=== PATIENT | female | born 1965 | race Caucasian/White ===

== ENCOUNTER 2017-05-22 08:42 | Emergency (ER) | payer OTHER ==
[2017-05-22] MEDS ORDERED: Diphtheria,Pertussis(Acell),Tetanus Vaccine 0.5 ML Syringe IM ONE (08:53)
[2017-05-22] MEDS ORDERED: Bacitracin Oint 1 GM U/D Packet TOP ONE (09:04)
--- NOTE | 2017-05-22 09:05 | EDM.PDOC ---
ED HPI GENERAL MEDICAL PROBLEM - General Chief Complaint: Upper Extremity Injury/Pain Stated Complaint: CUT FINGER ON LT HAND Time Seen by Provider: 05/22/17 09:02 Source of Information: Reports: Patient - History of Present Illness INITIAL COMMENTS - FREE TEXT/NARRATIVE: HISTORY AND PHYSICAL: History of present illness: [Patient presents with a puncture wound at the base of her fourth digit because by appearing knife is a small 2 mm puncture that is reported this morning, she is in no distress tendon function intact flexor and extensor higher limb is neurovascularly intact no redness warmth or pus drainage No fever nausea vomiting chills sweats ] Review of systems: As per history of present illness and below otherwise all systems reviewed and negative. Past medical history: As per history of present illness and as reviewed below otherwise noncontributory. Surgical history: As per history of present illness and as reviewed below otherwise noncontributory. Social history: No reported history of drug or alcohol abuse. Family history: As per history of present illness and as reviewed below otherwise noncontributory. Physical exam: HEENT: Atraumatic, normocephalic, pupils reactive, negative for conjunctival pallor or scleral icterus, mucous membranes moist, throat clear, neck supple, nontender, trachea midline. Lungs: Clear to auscultation, breath sounds equal bilaterally, chest nontender. Heart: S1S2, regular, negative for clicks, rubs, or JVD. Abdomen: Soft, nondistended, nontender. Negative for masses or hepatosplenomegaly. Negative for costovertebral tenderness. Pelvis: Stable nontender. Genitourinary: Deferred. Rectal: Deferred. Extremities: Atraumatic, negative for cords or calf pain. Neurovascular unremarkable. Neuro: Awake, alert, oriented. Cranial nerves II through XII unremarkable. Cerebellum unremarkable. Motor and sensory unremarkable throughout. Exam nonfocal. Skin as per history of present illness otherwise unremarkable Diagnostics: [Clinical] Therapeutics: Tetanus status was last updated July 2012 [Wound is cleansed and explored Keflex Bacitracin Telfa dressing applied] Impression: [Encounter for wound check] Definitive disposition and diagnosis as appropriate pending reevaluation and review of above. left 3rd digit Pain Score (Numeric/FACES): 7 - Related Data Allergies Allergy/AdvReac Type Severity Reaction Status Date / Time Sulfa (Sulfonamide Allergy Cannot Verified 05/22/17 08:52 Antibiotics) Remember Home Meds: Home Meds Gabapentin [Gabapentin] 1 tab PO BEDTIME 08/16/14 [History] Past Medical History Musculoskeletal History: Reports: Other (See Below) Other Musculoskeletal History: Right shoudler injury and right wrist pain - Infectious Disease History Infectious Disease History: Reports: Chicken Pox Other Infectious Disease History: childhood - Past Surgical History Musculoskeletal Surgical History: Reports: Other (See Below) Social & Family History - Family History Family Medical History: Noncontributory - Tobacco Use Smoking Status *Q: Never Smoker Second Hand Smoke Exposure: No - Alcohol Use Days Per Week of Alcohol Use: 2 Number of Drinks Per Day: 3 Total Drinks Per Week: 6 - Recreational Drug Use Recreational Drug Use: No Review of Systems - Review of Systems Review Of Systems: ROS reveals no pertinent complaints other than HPI. ED EXAM, GENERAL - Physical Exam Exam: See Below Course - Vital Signs Last Recorded V/S: Last Vital Signs Temp 97.1 F 05/22/17 08:53 Pulse 74 05/22/17 08:53 Resp 18 05/22/17 08:53 BP 121/72 05/22/17 08:53 Pulse Ox 100 05/22/17 08:53 - Orders/Labs/Meds Orders: Active Orders 24 hr Category Date Time Status Vaccines to be Administered [RC] PER UNIT ROUTINE Care 05/22/17 08:53 Active Meds: Medications Discontinued Medications Generic Name Dose Route Start Last Admin Trade Name Kali PRN Reason Stop Dose Admin Diphtheria/Tetanus/Acell Pertussis 0.5 ml 05/22/17 08:53 Adacel IM 05/22/17 08:54 .ONCE ONE Departure - Departure Time of Disposition: 09:03 Disposition: Home, Self-Care 01 Condition: Good Clinical Impression: Visit for wound check - Discharge Information Referrals: PCP,None [Primary Care Provider] - Additional Instructions: Standard wound care instructions Keep wound clean and dry for 48 hours Medication as prescribed The following information is given to patients seen in the emergency department who are being discharged to home. This information is to outline your options for follow-up care. We provide all patients seen in our emergency department with a follow-up referral. The need for follow-up, as well as the timing and circumstances, are variable depending upon the specifics of your emergency department visit. If you don't have a primary care physician on staff, we will provide you with a referral. We always advise you to contact your personal physician following an emergency department visit to inform them of the circumstance of the visit and for follow-up with them and/or the need for any referrals to a consulting specialist. The emergency department will also refer you to a specialist when appropriate. This referral assures that you have the opportunity for follow-up care with a specialist. All of these measure are taken in an effort to provide you with optimal care, which includes your follow-up. Under all circumstances we always encourage you to contact your private physician who remains a resource for coordinating your care. When calling for follow-up care, please make the office aware that this follow-up is from your recent emergency room visit. If for any reason you are refused follow-up, please contact the [facility] emergency department at and asked to speak to the emergency department charge nurse. - My Orders Last 24 Hours: My Active Orders 05/22/17 08:53 Vaccines to be Administered [RC] PER UNIT ROUTINE - Assessment/Plan Last 24 Hours: My Active Orders 05/22/17 08:53 Vaccines to be Administered [RC] PER UNIT ROUTINE
[2017-05-22 09:19] VITALS: BP 117/76
== END 2017-05-22 09:19 | disposition home or self-care (01) ==
LOC: MW.ED 08:42
DX: S61.233D Puncture wound without foreign body of left middle finger without damage to nail, subsequent encounter (principal); Z88.2 Allergy status to sulfonamides; Z23 Encounter for immunization; W26.0XXD Contact with knife, subsequent encounter
CPT/HCPCS: 90471; 99283; 99283-25

== ENCOUNTER 2019-07-13 07:15 | Emergency (ER) | payer BC, OTHER ==
--- NOTE | 2019-07-13 07:53 | EDM.PDOC ---
ED [facility] GENERAL MEDICAL PROBLEM - General Chief Complaint: Back Pain or Injury Stated Complaint: BACK PAIN Time Seen by Provider: 07/13/19 07:53 - History of Present Illness INITIAL COMMENTS - FREE TEXT/NARRATIVE: HPI 54-year-old obese female presents for evaluation of right sided low lumbar paraspinal pain is sharp, provoked by twisting and movement, and radiates down her right leg into his right inguinal crease began gradually yesterday while the patient was lifting and moving items into a new 5th wheel trailer. Patient denies a history of recent trauma, fevers, chills, unexpected weight loss, decreased perineal sensation when toileting, difficulty urinating or incontinence, morning stiffness, IV drug use, alcoholism, recent invasive medical procedures, presyncope, abdominal pain, or dysuria. Smokin pack year history. Anticoagulation: denies anticoagulation and antiplatelet medications. M/S/F/SocHx notable for: please see HPI; remainder reviewed with patient and in chart. ROS: Negative constitutional, eye, cardiovascular, pulmonary, GI, , MSK, skin , neurologic, psychiatric, endocrine unless noted in the HPI. Exam HR 94, RR 20, BP 142/93, T 36.6C, SaO2 98% on room air. Gen: Pleasant, non-toxic appearing, resting in mild discomfort, tearful. HEENT: NC, AT, PEERL, EOMI. Resp: clear to auscultation bilaterally. Card: RRR GI: ND, non-tender to palpation, no palpable midline masses, no palpable midline pulsatility. : No CVA tenderness to percussion bilaterally. MSK: No visible deformities, strength and tone WNL. No lower thoracic or lumbar spinal TTP, step offs or deformities. Mild right lower lumbar paraspinal TTP. Skin: Normal color with no visible lesions. Neuro: alert and oriented 3, no facial asymmetry, vision and hearing WNL. Straight leg raise test - positive right, negative left. BLE distal sensation intact, 5/5 dorsiflexion / plantarflexion bilaterally. Gait: mildly antalgic, normal, narrow based gait, able to walk unassisted and stand on heels and toes with full apparent strength. Psych: anxious mood and affect, otherwise appropriate. MDM Previous chart, nursing note, and vitals reviewed. A: 54-year-old obese female presents for evaluation of right sided low lumbar paraspinal pain is sharp, provoked by twisting and movement, and radiates down her right leg into his right inguinal crease began gradually yesterday while the patient was lifting and moving items into a new 5th wheel trailer. DDx: muscle strain, muscle spasm, sciatica, lumbar radiculopathy, cauda equina syndrome, spinal cord abscess, vertebral osteomyelitis, vertebral diskitis, fracture, seronegative spondyloarthropathy, abdominal aortic aneurysm, abdominal aortic dissection, spontaneous hematoma, malignant spinal cord compression. Evaluation: * Cauda equina - consider unlikely given normal perineal sensation, lack of incontinence or urinary retention. * Infection - abscess, vertebral osteomyelitis, and diskitis are unlikely as the patient is immunocompetent and is with an absence of infectious signs and risk factors on ROS, and a lack of point tenderness. * Fracture - doubt given the absence of spinal TTP and lack of prior trauma * Seronegative spondyloarthropathy - unlikely, no further evaluation currently indicated given the absence of morning stiffness and negative RA, psoriatic arthritis, and autoimmune disease history. * AAA or Dissection - given the absence of tobacco use, the lack of a palpable pulsatile abdominal mass, abdominal pain, presyncope, an abdominal aortic aneurysm as well as dissection is considered unlikely and further investigation is not currently indicated. * Spinal Metastases - given the unremarkable ROS, absence of point spinal tenderness on exam and the lack of discernible neurological deficit, no further testing regarding this etiology is currently indicated. * Consider lumbar radiculopathy to be the most likely cause of the patients symptoms. Counseled patient regarding natural course of radicular back pain, given return to care instructions, and recommendation for primary care physician follow up. Discharged with limited RX for [place]. Patient was notified of their elevated blood pressure and recommended to follow up with their primary care physician. As the patient is without evidence of acute end organ dysfunction no further emergent evaluation is indicated as per the 2013 ACEP clinical policy. Impression: Back Pain. lower back Pain Score (Numeric/FACES): 10 - Related Data Allergies Allergy/AdvReac Type Severity Reaction Status Date / Time Sulfa (Sulfonamide Allergy Cannot Verified 07/13/19 07:27 Antibiotics) Remember Home Meds: Home Meds Hydrocodone/Acetaminophen [[place] 5-325 Tablet] 1 - 2 each PO Q6H PRN #10 tablet 07/13/19 [Rx] Past Medical History HEENT History: Reports: None Cardiovascular History: Reports: None Respiratory History: Reports: None Gastrointestinal History: Reports: None Genitourinary History: Reports: None ARTILLERY SPECIALIST History: Reports: None Musculoskeletal History: Reports: Other (See Below) Other Musculoskeletal History: Right shoudler injury and right wrist pain Neurological History: Reports: None Psychiatric History: Reports: None Endocrine/Metabolic History: Reports: None Hematologic History: Reports: None Immunologic History: Reports: None Oncologic (Cancer) History: Reports: None Dermatologic History: Reports: None - Infectious Disease History Infectious Disease History: Reports: Chicken Pox Other Infectious Disease History: childhood - Past Surgical History Head Surgeries/Procedures: Reports: None HEENT Surgical History: Reports: None Cardiovascular Surgical History: Reports: None Respiratory Surgical History: Reports: None GI Surgical History: Reports: None Female Surgical History: Reports: Hysterectomy Endocrine Surgical History: Reports: None Neurological Surgical History: Reports: None Musculoskeletal Surgical History: Reports: Other (See Below) Other Musculoskeletal Surgeries/Procedures:: left hand surgery Oncologic Surgical History: Reports: None Dermatological Surgical History: Reports: None Social & Family History - Family History Family Medical History: Noncontributory - Tobacco Use Smoking Status *Q: Never Smoker Second Hand Smoke Exposure: No - Caffeine Use Caffeine Use: Reports: None - Recreational Drug Use Recreational Drug Use: No ED ROS GENERAL - Review of Systems Review Of Systems: See Below ED EXAM, GENERAL - Physical Exam Exam: See Below Course - Vital Signs Last Recorded V/S: Last Vital Signs Temp 36.6 C 07/13/19 07:24 Pulse 94 07/13/19 07:24 Resp 20 07/13/19 07:24 BP 142/93 H 07/13/19 07:24 Pulse Ox 98 07/13/19 07:24 Departure - Departure Time of Disposition: 07:52 Disposition: 20 Clinical Impression: Lumbar radiculopathy - Discharge Information Prescriptions: Hydrocodone/Acetaminophen [[place] 5-325 Tablet] 1 - 2 each PO Q6H PRN #10 tablet PRN Reason: Pain Referrals: Shelly Mendez, PROJECT CONTROLLER [Primary Care Provider] - Additional Instructions: You were in seen in the [facility] Emergency Department for evaluation of back pain. Please read and follow all of the instructions below. Please follow up with your primary care physician within 48 hours for repeat evaluation further care as needed. When calling for follow-up care, please make the office aware that this follow-up is from your recent emergency room visit. If for any reason you are refused follow-up, please contact the [facility] Emergency Department at and asked to speak to the emergency department charge nurse. Your care today was limited to identifying and treating emergent medical problems only. Many people have subtle differences in their test results that require follow up with their outpatient physician(s) to correctly determine if this represents a normal variation or concerning abnormality with respect to your specific health. The care given to you today was limited to identifying and treating emergent medical problems - you need to request a copy of all of your medical records from today's visit and follow up with your outpatient physician(s) to review both today's visit and your overall health. If you have any new symptoms or if you are at all concerned about your health please return immediately to the emergency department. Prescriptions: If you are uninsured or have financial difficulties with filling your prescription(s), you may consider using a free pharmacy discount service such as Web[employer] (([employer]) or [employer] ([employer]). These services allow you to search for a medication on your phone (or computer) and obtain a coupon that usually has a significant discount from the list teran at a pharmacy. Your physician as well as [facility] does not have a financial relationship with either of these services. You may also wish to speak with your physician to determine if lower cost prescriptions are possible. Obtaining primary care: 1. [facility] provides pediatrics (children), family medicine (children, adults, and some obstetrical care), and internal medicine (adults). Further specialty care is also available. Same day appointments are available. They may be contacted at [phone] and are open Saturday through Saturday 8 AM to 5 PM. The [facility] are located at [facility], [address] [place] [address]. 2. [facility] offers family medicine, internal medicine, womens health, and further specialty care. [facility] may be contacted at [phone]. [facility] is located at [address] [place], [address]. 3. If you have health insurance, please also contact your insurer for a list of accepting providers under your policy, you may contact these providers for further health care. Occupational health: Work related injuries may consider following up with [facility], . Occupational health services are located at [address] [place] [address] and are open Saturday through Saturday from 7: 30 am to 5:00 pm. Obstetrical and Gynecological Care: [facility], , Saturday through Saturday 8 AM to 5 PM. [address] [place] [address]. Eyecare: If you have an eye injury you should follow up with your mold stacker or with [facility], at [phone] or [phone] , they are located at [address] [place] [address]. Dental Care Carlito Thrasher DDS. [address] [place], [place]. Ph. [phone] Richie Thrasher DDS MS. [address] [facility] [address], [place], [place]. Ph. [phone] Terry Sousa DDS. [address] [place] [address]. Ph. [phone] Curt Mays DDS. [address] [facility] [address] [place], [place]. Ph. [phone] Jaron Hensley DDS PC. [address] [facility] [address] [place], [place]. Ph. [phone] Morena Rodriguez DDS. [address] [facility]. Ph. [phone] [facility]. [address], [place]. Ph. [phone] [facility]. [address] [place] [address], [place], [place]. Ph. [phone] [facility] [address] [place] [address]. Ph. [phone] Sincetiffanie Brown. [address] [place] [address] 1. GALDINO Murphy. Ph. [phone] [facility]. [address] [place]. Ph. [phone] Back Pain You were evaluated today in the emergency department for your back pain. Your pain is believed to be caused by muscle stains and spasms. This type of pain can be very severe, but it is almost never serious. * You may take ibuprofen 600 mg every 6 to 8 hours as needed for pain. Do not take this ibuprofen if you are or allergic to ibuprofen, Motrin, Aleve , or Naproxen. Do not take acetaminophen if you are allergic to Tylenol or acetaminophen. * Call your primary care physician to schedule a follow up appointment. Many people have pain that lasts beyond the length of the medications prescribed in the emergency department. You may also benefit from physical therapy, lifestyle changes, and further evaluation. Please return to the emergency department if you develop any of the following: * Pain on your spine (on the bones) * Have numbness or weakness in your legs * Have problems with bowel or bladder control * Have decreased sensation in your groin or at your anus * Have unexplained weight loss * Have a fever or feel sick in other ways * If you have pain that is so severe that you cannot perform simple tasks * If you are otherwise concerned about your health Please follow up with your primary care physician if you still have pain after 4 -5 days. What causes low back pain? In most cases, doctors and nurses do not know what causes low back pain. Pain can happen if you strain a muscle or hurt a tendon or ligament. But if that is the cause of your pain, doctors and nurses have no way of knowing it for sure. Pain can also happen if you have: * Damaged, bulging, or torn discs * Arthritis affecting the joints of the spine * Bony growths on the vertebrae that crowd nearby nerves * A vertebra out of place * Narrowing in the spinal canal * A tumor or infection (but this is very rare) Should I get an imaging test, like an MRI? Most people do not need an imaging test. Most cases of back pain go away within 4 to 6 weeks or in even less time. Doctors and nurses usually do not order imaging tests before then unless there are signs of something unusual. * If your doctor or nurse does not order an imaging test, do not worry. He or she can still learn a lot about your pain just from looking you over and talking with you. Plus, treatment can start right away, even without an imaging test. * How can the doctor or nurse tell what is wrong just by talking to me? Your symptoms tell your doctor or nurse a lot about the cause of your pain. If your pain spreads down the back of one thigh, for instance, that could be a sign that one of the nerves that go to your leg is being pinched by a bulging or torn disc. If, on the other hand, your pain goes all the way down both legs, that could be a sign that you have bony growths on your spine. * What can I do to feel better? The best thing you can do is to stay as active as possible even if you are in pain. People with low back pain recover faster if they stay active. Walk as much as you can. If you stopped working because of your pain, try to get back to your normal routine soon. But do not overdo it. * When you start to feel better, ask your doctor or nurse about exercises that can help strengthen your back. These exercises can help you get better faster and might make it less likely that you will have pain again. How is back pain treated? A small number of people end up needing surgery to treat back pain. But most people do well with simpler treatments, such as: * Physical therapy to teach you special exercises and stretches * Injections of medicines that numb the back or reduce swelling * What can I do to keep from getting back pain again? Stay active, maintain a healthy body weight and learn exercises that help strengthen and stretch your back. Learn to lift using your legs instead of your back. And avoid sitting or standing in the same position for too long. You make take over the counter Acetaminophen (Tylenol) and Ibuprofen (Motrin or Aleve) as directed below for relief of pain. * You can take these medications at the same time or on separate schedules. * Do not take for more than 10 days. * Do not take with alcohol or other acetaminophen containing medications. * This medication may cause a mildly upset stomach, if so take it with a small snack. Stop taking it if you have persistent abdominal pain, heartburn, or any stomach pain. Do not take this medication if you have known ulcers. * Please read the warnings at the end of this document regarding these medications. Ibuprofen (Brand Names: Motrin, Advil) Take 600 mg with a glass of water every 6 to 8 hours as needed for pain or fever. Do not take for more than 10 days. This medication may cause a mildly upset stomach, if so take it with a small snack. Stop taking it if you have persistent abdominal pain, heartburn, or any stomach pain. Do not take this medication if you have known ulcers. Do not take with Naproxen Sodium (brand name: Aleve) or other non-steroidal antiiflammatory medications that you may be prescribed (e.g. Diclofenac, Etodolac, Indomethicin) WARNING: This drug may infrequently cause serious (rarely fatal) bleeding from the stomach or intestines. Also, related drugs rarely have caused blood clots to form, resulting in heart attacks and strokes. This medication might also rarely cause similar problems. Talk to your doctor or pharmacist about the benefits and risks of treatment, as well as other possible medication choices. If you notice any of the following rare but very serious side effects, stop taking ibuprofen and seek immediate medical attention: black stools, persistent stomach/abdominal pain, vomit that looks like coffee grounds, chest pain, weakness on one side of the body, sudden vision changes, slurred speech. SIDE EFFECTS: Upset stomach, nausea, vomiting, heartburn, headache, diarrhea, constipation, drowsiness, and dizziness may occur. If any of these effects persist or worsen, notify your doctor or pharmacist promptly. If your doctor has directed you to use this medication, remember that he or she has judged that the benefit to you is greater than the risk of side effects. Many people using this medication do not have serious side effects. Tell your doctor immediately if any of these serious side effects occur: stomach pain, swelling of the hands or feet, sudden or unexplained weight gain, ringing in the ears ( tinnitus). Tell your doctor immediately if any of these unlikely but serious side effects occur: vision changes, rapid or pounding heartbeat, easy bruising or bleeding, difficult/painful swallowing. Tell your doctor immediately if any of these highly unlikely but very serious side effects occur: change in amount of urine, severe headache, very stiff neck, mental/mood changes, persistent sore throat or fever. This drug may rarely cause serious (possibly fatal) liver disease. If you notice any of the following highly unlikely but very serious side effects, stop taking ibuprofen and consult your doctor or pharmacist immediately: yellowing eyes and skin, dark urine, unusual/extreme tiredness. An allergic reaction to this drug is unlikely, but seek immediate medical attention if it occurs. Symptoms of an allergic reaction include: rash, itching/ swelling (especially of the face/tongue/throat), severe dizziness, trouble breathing. This is not a complete list of possible side effects. DRUG INTERACTIONS: Your healthcare professionals (e.g., doctor or pharmacist) may already be aware of any possible drug interactions and may be monitoring you for it. Do not start, stop or change the dosage of any medicine before checking with them first. This drug should not be used with the following medications because very serious interactions may occur: cidofovir, ketorolac. If you are currently using any of these medications listed above, tell your doctor or pharmacist before starting ibuprofen. Before using this medication, tell your doctor or pharmacist of all prescription and nonprescription/herbal products you may use, especially of: anti-platelet drugs (e.g., cilostazol, clopidogrel), oral bisphosphonates (e.g., alendronate), other medications for arthritis (e.g., aspirin, methotrexate), "blood thinners" (e.g., enoxaparin, heparin, warfarin), corticosteroids (e.g., prednisone), cyclosporine, desmopressin, high blood pressure drugs (including ELIU inhibitors such as captopril, angiotensin II receptor antagonists such as losartan, and beta- blockers such as metoprolol), lithium, pemetrexed, "water pills" (diuretics such as furosemide, hydrochlorothiazide, triamterene). Check all prescription and nonprescription medicine labels carefully for other pain/fever drugs ( NSAIDs such as aspirin, celecoxib, naproxen). These drugs are similar to ibuprofen, so taking one of these drugs while also taking ibuprofen may increase your risk of side effects. Consult your doctor or pharmacist for more details. However, if your doctor has prescribed low doses of aspirin to prevent heart attack or stroke (usually at dosages of 81-325 milligrams a day), you should continue to take the aspirin. Daily use of ibuprofen may decrease aspirin 's ability to prevent heart attack/stroke. Talk to your doctor about using a different medication (e.g., acetaminophen) to treat pain/fever. If you must take ibuprofen, talk to your doctor about possibly taking immediate-release aspirin (not enteric-coated) while also taking the ibuprofen dose apart from your aspirin dose. Do not increase your daily dose of aspirin or change the way you take aspirin/other medications without your doctor's approval. This document does not contain all possible interactions. Therefore, before using this product, tell your doctor or pharmacist of all the products you use. Keep a list of all your medications with you, and share the list with your doctor and pharmacist. Hydrocodone/Acetaminophen (Brand Names: [place], Vicodin) Take as directed on the prescription for relief of pain. This product contains acetaminophen (Tylenol) do not use it with other Acetaminophen containing medications. This drug may cause mild nausea, if so you may take it with a small snack. This drug will cause constipation, if you experience a decrease in bowel movements purchase "Senna-S" (sennasides and docusate) which is available over the counter at pharmacies and take as directed on the bottle. Call your physician if you have not had bowel movemen in two days. This drug may cause fatigue - do not drive or engage in other hazardous activities when using this medication. Do no drink alcohol when using this medication. Store this drug safely, it is a high risk medication if misused. SIDE EFFECTS: Tell your doctor immediately if any of these unlikely but serious side effects occur: mental/mood changes, severe stomach/abdominal pain, difficulty urinating. Seek immediate medical attention if any of these rare but serious side effects occur: fainting, seizure, slow/shallow breathing, unusual drowsiness/difficulty waking up. Taking more than the recommended dose of acetaminophen may cause serious (possibly fatal) liver disease. Seek immediate medical attention if you have any symptoms of liver damage, including: dark urine, persistent nausea/vomiting, stomach/abdominal pain, yellowing eyes/skin. A very serious allergic reaction to this drug is rare. However, seek immediate medical attention if you notice any symptoms of a serious allergic reaction, including: rash, itching/swelling (especially of the face/tongue/throat), severe dizziness, trouble breathing. This is not a complete list of possible side effects. PRECAUTIONS: Before taking this medication, tell your doctor or pharmacist if you are allergic to it; or to other narcotics (such as morphine, codeine); or if you have any other allergies. This product may contain inactive ingredients, which can cause allergic reactions or other problems. Talk to your pharmacist for more details. Before using this medication, tell your doctor or pharmacist your medical history, especially of: brain disorders (such as head injury, tumor , seizures), breathing problems (such as asthma, sleep apnea, chronic obstructive pulmonary disease-COPD), kidney disease, liver disease, mental/mood disorders (such as confusion, depression), personal or family history of regular use/abuse of drugs/alcohol, stomach/intestinal problems (such as blockage, constipation, diarrhea due to infection, paralytic ileus), difficulty urinating (such as due to enlarged prostate). This drug may make you dizzy or drowsy. Avoid alcoholic beverages. Acetaminophen may cause liver damage. Daily use of alcohol, especially when combined with acetaminophen, may increase your risk for liver damage. Caution is advised if you have diabetes, alcohol dependence, liver disease, phenylketonuria (PKU), or any other condition that requires you to limit/avoid these substances in your diet. Ask your doctor or pharmacist about using this product safely. Older adults may be more sensitive to the effects of this drug, especially dizziness, drowsiness, urinary problems. During , this medication should be used only when clearly needed. Using it for long periods or in high doses near the expected delivery date is not recommended because of the potential for harm to the unborn baby. Discuss the risks and benefits with your doctor. Babies born to mothers who have used this medication for an extended time may have withdrawal symptoms such as irritability, abnormal/persistent crying, vomiting, or diarrhea. If you notice any of these symptoms in your , tell the doctor promptly. This medication passes into breast milk and may rarely have undesirable effects on a nursing . Tell the doctor immediately if your baby develops unusual sleepiness, difficulty feeding, or trouble breathing. Consult your doctor before breast-feeding. High Blood Pressure (Hypertension) When you were in the emergency department you had an abnormally high blood pressure. High blood pressure can be without symptoms. However high blood pressure can lead to many medical problems including kidney disease, strokes, and heart attacks. Your blood pressure may have been elevated due to pain or the stress of being in the emergency department, however half of people with an elevated blood pressure in the emergency department have [employer] problems with high blood pressure. Please see your primary care physician in 2-3 days for a repeat check of your blood pressure. This may help prevent many health serious problems in the future. Please return to the emergency department if you develop any of the following: chest pain, shortness of breath, new or severe headache, changes in vision or hearing, weakness, or if you are otherwise concerned about your health. Sepsis Event Note - Evaluation Sepsis Screening Result: No Definite Risk - Focused Exam Vital Signs: Vital Signs Temp Pulse Resp BP Pulse Ox 07/13/19 07:24 36.6 C 94 20 142/93 H 98 Date Exam was Performed: 07/13/19 Time Exam was Performed: 07:52
[2019-07-13 09:28] VITALS: BP 108/69; PULSE 76
== END 2019-07-13 08:10 | disposition home or self-care (01) ==
LOC: MW.ED 07:15
DX: M54.16 Radiculopathy, lumbar region (principal); Z88.2 Allergy status to sulfonamides
CPT/HCPCS: 99283

== ENCOUNTER 2024-07-07 14:17 | Emergency (ER) | payer BC ==
[2024-07-07 15:20] VITALS: BP 119/61; PULSE 75
[2024-07-07] MEDS: Lidocaine 4% Patch TOP STA (16:35)
[2024-07-07] MEDS: traMADol 50 MG Tab PO STA (16:35)
== END 2024-07-07 17:42 | disposition home or self-care (01) ==
LOC: MW.ED 14:17
DX: S63.501A Unspecified sprain of right wrist, initial encounter (principal); M54.50 Low back pain, unspecified; J44.9 Chronic obstructive pulmonary disease, unspecified; E78.00 Pure hypercholesterolemia, unspecified; Z79.899 Other long term (current) drug therapy; Z75.8 Other problems related to medical facilities and other health care; Z90.710 Acquired absence of both cervix and uterus; W00.0XXA Fall on same level due to ice and snow, initial encounter
CPT/HCPCS: 72131; 72192; 73110; 99284; A9270

== ENCOUNTER 2025-01-25 09:38 | Emergency (ER) | payer BC ==
[2025-01-25] MEDS ORDERED: Sodium Chloride 0.9% 10 ML Syringe FLUSH PRN (10:10)
[2025-01-25] MEDS ORDERED: Sodium Chloride 0.9% 2.5 ML Syringe FLUSH PRN (10:10)
[2025-01-25 10:15] LABS: BASOPHILS ABSOLUTE AUTO 0.03 K/uL (0.00-0.20); BASOPHILS PERCENT AUTO 0.3 % (0.0-1.0); EOSINOPHILS ABSOLUTE AUTO 0.14 K/uL (0.00-0.45); EOSINOPHILS PERCENT AUTO 1.4 % (0.0-6.0); IMMATURE GRAN ABSOLUTE AUTO 0.04 K/uL (0.00-0.05); IMMATURE GRAN PERCENT AUTO 0.4 % (0.0-0.4); LYMPHOCYTES ABSOLUTE AUTO 2.10 K/uL (1.00-4.80); LYMPHOCYTES PERCENT AUTO 20.3 % (24.0-44.0); MEAN PLATELET VOLUME 11.1 fL (9.4-12.3); MONOCYTES ABSOLUTE AUTO 0.55 K/uL (0.00-0.80); MONOCYTES PERCENT AUTO 5.3 % (0.0-8.0); NEUTROPHILS ABSOLUTE AUTO 7.49 K/uL (1.80-7.70); NEUTROPHILS PERCENT AUTO 72.3 % (41.0-71.0); NRBC ABSOLUTE 0.00 K/uL (0.00-0.02); NRBC PERCENT 0.0 /100WBC (0.0-0.2); PLATELET COUNT,PLT 246 K/uL (150-400); RED BLOOD CELL COUNT 4.90 M/uL (4.10-5.30); WHITE BLOOD CELL COUNT,WBC 10.35 K/uL (3.9-11.3)
[2025-01-25] MEDS: Ondansetron 4 MG/2 ML SDV IVPUSH ONE (10:20)
[2025-01-25 10:35] LABS: A/G RATIO 1.3 (0.9-1.6); ALANINE AMINOTRANSFERASE,ALT 37.0 IU/L (14-63); ASPARTATE AMNIOTRANSFERASE,AST 23.0 IU/L (15-37); BILIRUBIN TOTAL 0.5 mg/dL (0.2-1.0); BLOOD UREA NITROGEN,BUN 9.0 mg/dL (7.0-18.0); CARBON DIOXIDE,CO2 24.1 mmol/L (21.0-32.0); CHLORIDE,CL 106.0 mmol/L (98-107); CREATININE 0.5 mg/dL (0.6-1.0); EST CRCL DRUG DOSING (CG) 107.2 mL/min; GLUCOSE RANDOM 88.0 mg/dL (74-106); POTASSIUM,K 3.8 mmol/L (3.5-5.1); PROTEIN TOTAL,TP 7.0 g/dL (6.4-8.2); SODIUM,NA 142.0 mmol/L (136-145)
[2025-01-25 10:41] LABS: ESTIMATED GFR 109.0 mL/min (>60)
[2025-01-25] MEDS: Iopamidol 755 MG/ML 500 ML Multipack Bottle IVPUSH STA (10:53)
[2025-01-25 12:01] LABS: APPEARANCE,URINE CLEAR; GLUCOSE,URINE NEGATIVE (NEGATIVE); OCCULT BLOOD,URINE NEGATIVE (NEGATIVE)
[2025-01-25 12:23] VITALS: BP 143/69; PULSE 69
== END 2025-01-25 12:23 | disposition home or self-care (01) ==
LOC: MW.ED 09:38
DX: R10.32 Left lower quadrant pain (principal); R10.12 Left upper quadrant pain; E78.00 Pure hypercholesterolemia, unspecified; J44.9 Chronic obstructive pulmonary disease, unspecified; Z75.3 Unavailability and inaccessibility of health-care facilities; Z88.0 Allergy status to penicillin; Z88.2 Allergy status to sulfonamides; Z79.899 Other long term (current) drug therapy
CPT/HCPCS: 36415; 74177; 80053; 81003; 83690; 85025; 96361; 96374; 96375; 99284; A9270; J2270; J2405; J7030; Q9967; 99283